=== PATIENT | male | born 1995 | race Two or more races ===

== ENCOUNTER 2023-08-30 20:36 | Emergency (ER) | payer OTHER ==
[~2023-08-30] VITALS: Ht 185.4 cm; Wt 122.0 kg
[2023-08-30 20:36] VITALS: BP 142/80; RESP 20; O2SAT 100
[2023-08-30 21:07] VITALS: PULSE 72
[2023-08-30] MEDS ORDERED: GABAPENTIN 300 MG CAP PO ONE (21:30)
[2023-08-30 21:52] LABS: Basophils # (auto) 0 10 ^3/uL (0-0.2); Basophils % (auto) 0.8 % (0.0-2.0); Eosinophils # (auto) 0.2 10 ^3/uL (0-0.8); Eosinophils % (auto) 2.9 % (0.0-7.0); Hematocrit 40.9 % (41.0-53.0); Hemoglobin 13.5 g/dL (13.5-17.5); Lymphocytes # (auto) 1.7 10 ^3/uL (0.4-5.4); Lymphocytes % (auto) 28.3 % (10.0-50.0); Mean Corpuscular Hemoglobin 29.4 pg (28.0-32.0); Mean Corpuscular Hgb Conc. 32.9 g/dL (32.0-36.0); Mean Corpuscular Volume 89.4 fL (80.0-100.0); Monocytes # (auto) 0.4 10 ^3/uL (0-1.3); Monocytes % (auto) 6.6 % (0.0-12.0); Neutrophils # (auto) 3.7 10 ^3/uL (1.6-8.6); Neutrophils % (auto) 61.4 % (37.0-80.0); Nucleated Red Blood Cells % 0.1 %; Red Blood Cells 4.58 10^6/uL (4.5-5.90); Red Cell Distribution Width 14.1 % (11.8-14.3)
[2023-08-30 22:00] LABS: Chloride 106 mmol/L (98-107); Potassium 4.2 mmol/L (3.5-5.1); Sodium 139 mmol/L (136-145)
[2023-08-30 22:01] LABS: Anion Gap 4 (5-15); Carbon Dioxide 29 mmol/L (20-30)
[2023-08-30 22:06] LABS: BUN/Creatinine Ratio 12.1 (10.0-20.0); Blood Urea Nitrogen 16 mg/dL (9-23); Glucose 86 mg/dL (74-106)
[2023-08-31] MEDS ORDERED: GABA-1250 PO (00:07)
== END 2023-08-31 02:41 | disposition home or self-care (01) ==
LOC: ER 20:36
DX: G62.9 Polyneuropathy, unspecified (principal); R25.1 Tremor, unspecified; F41.9 Anxiety disorder, unspecified; F32.9 Major depressive disorder, single episode, unspecified; Z88.0 Allergy status to penicillin
CPT/HCPCS: 36415; 72040; 72100; 80048; 84484; 85025; 93005

== ENCOUNTER 2025-04-10 22:21 | Emergency (ER) | payer MEDICARE, OTHER ==
[~2025-04-10] VITALS: Ht 182.9 cm; Wt 131.0 kg
[~2025-04-10 22:21] MED LIST: GABA-1250 PO
[2025-04-10 22:25] VITALS: PULSE 67; RESP 17; O2SAT 100
[2025-04-10] MEDS: SODIUM CHLORIDE 0.9% 1,000 ML IV ONE ×2 (22:30→23:00)
--- NOTE | 2025-04-10 22:31 | ED.PDOC ---
Altered Mental Status HPI Comments 30-year-old, obese M is SAROJ from private residence for [employer]. Girlfriend called, endorsing on patient drinking [id number] of alcoholic drink Buzzball in addition to taking a handful of his Trazodone and Lorazepam in a suicide attempt after getting into a verbal altercation with her, earlier, this evening. On scene, patient was GCS 3, pupils were responsive but slow, and vitals were within normal limits. No reported falls or injuries. Pertinent history of schizophrenia. Past medical history: schizophrenia, depression, anxiety Past surgical history: denies Medications: 10 mg Trintellix qd, 20 mg propranolol b.i.d, 1 rexulti brexpiprazole, Trazodone, and Lorazepam On scene vitals: blood pressure of 160/87 pulse 69 respiratory rate 16 SpO2 99%RA blood glucose 71 green, christopher: OD, SI. normal exam. HPI: Poor Historian. REVIEW OF SYSTEMS: CONSTITUTIONAL: Denies acute: fever, diaphoresis, chills, HEAD: Denies acute: headache, photophobia Eyes: Denies acute: Double vision, vision loss, eye pain, eye discharge. EARS: Denies acute: tinnitus, hearing loss, ear discharge, ear pain, THROAT: Denies acute: sore throat, swelling, difficulty swallowing , pain with swallowing, change in voice. NECK: Denies acute: neck pain, neck swelling, stiff neck. HEART: Denies acute : chest pain, palpitations, LUNGS: Denies acute: SOB, wheezing, cough, hemoptysis ABDOMEN: Denies acute: abdominal pain, Nausea, Vomiting, diarrhea, melena , hematemesis, hematochezia SKIN: Denies acute: rash, redness, lesions, itchiness. EXTREMITIES: Denies acute: calf pain, numbness, tingling, weakness, denies pain in extremity. Denies acute: Low back pain. Neuro: Denies acute: focal neurological deficit, motor or sensory focal neurological deficit, tremors, seizure like activity, loss of bowel or bladder function, cauda equina like symptoms. : Denies acute: dysuria, hematuria, flank pain, increase in urinary frequency. PSYCH: Denies acute: hallucination, homicidal ideation. PHYSICAL EXAM: General: ----no----acute distress, awake and alert. Head: normocephalic, atraumatic. No raccoon's eyes, no he sign. Neck: supple, trachea is midline, no swelling. Throat: Normal phonation. Eyes:, no erythema, no purulent discharge, no proptosis, no icterus. Heart: regular rate, regular rhythm, no significant murmur appreciated. Lungs: no apparent respiratory distress, Able to speak in full sentences. No wheezing, no rhonchi, no crackles. No stridors Clear to auscultation bilaterally. Abdomen: non tender to palpation, non distended, soft, no guarding, no rebound, + bowel sounds. Neuro: Arousable but lethargic, follows commands, knows his name and able to answer questions of what medications he took. Skin: no petechia, no purpura, no cyanosis, non-pale, not jaundice. Lower extremities: --no - Pitting edema no deformity, no focal swelling, no calf TTP. Face: no apparent facial droop. PERRLA, EOM-I No nuchal rigidity, Kernig's sign, Brudzinski's sign, no meningeal signs. ED COURSE: DISCLAIMER: This medical document was created using an electronic medical record system with voice recognition software and computerized dictation system. Although this document has been carefully reviewed, there might still be some phonetic and typographical errors. Occasional wrong-word or "sound-alike" substitutions may have occurred due to the inherent limitations of voice recognition software. These areas are purely typographical due to imperfections of the software programs and do not reflect any compromise in the patient's medical care. Please read the chart carefully and recognize, using context, where these substitutions have occurred. Time Seen by MD: 10:20 Reviewed Notes: Allergies Allergies: Coded Allergies: Penicillins (Verified Allergy, Unknown, 08/30/23) Home Meds Active Scripts Gabapentin (Gabapentin) 300 Mg Cap, 1 CAP PO Q6HP PRN, #30 CAP 0 Refills Prov:PAWEL SANTIAGO PAC 08/31/23 Information Source: Patient, Emergency Med Personnel Mode of Arrival: EMS Past Medical History PAST MEDICAL HISTORY: Anxiety, Depression, Schizophrenia Surgical History: Denies all surgeries Family History Family History: Reviewed,noncontributory to illness, No family hx of Cancer, No family hx of DM, No family hx of Heart armida, No family hx of HTN, No family hx ofKidney armida, No family hx of Liver armida, No family hx of Lung armida, No family hx of Stroke Social History Smoker: Non-Smoker Alcohol: Occasionally Drugs: Denies Drug Use Lives In: Home Was a procedure done? Was a procedure done?: No Differential Diagnosis (ALOC) Differential Diagnosis: Other (DDX include CVA, TGA, cerebellar ischemia/infarct, carotid stenosis, Intracranial mass/infection/bleed, encephalopathy, electrolyte abnormality, thyroid disease, hydrocephalus, hypoglycemia, drug toxicity, cardiac arrhythmia, seizure, infection in the elderly, Hyperammonemia., kidney failure., sepsis.) Other Differential Diagnosis Suicide attempt, suicide ideation, drug overdose, schizophrenia, X-Ray, Labs, Meds, VS Vital Signs Date Time Temp Pulse Resp B/P (MAP) Pulse Ox O2 Delivery O2 Flow Rate FiO2 04/11/25 04:00 84 04/11/25 04:00 64 11 100/56 (71) 98 04/11/25 02:00 66 10 91/54 (66) 99 04/11/25 00:00 75 04/10/25 23:15 56 13 110/47 (68) 100 04/10/25 22:30 98.6 67 4 160/87 99 98.6 04/10/25 22:25 67 17 100 Nasal Cannula* 2 28 04/10/25 22:25 62 04/10/25 22:25 98.3 67 17 117/62 (80) 100 98.3 Lab Test 04/10/25 22:35 Range/Units White Blood Count 5.3 4.4-10.8 10^3/uL Red Blood Count 4.41 L 4.5-5.90 10^6/uL Hemoglobin 13.0 L 13.5-17.5 g/dL Hematocrit 39.7 L 41.0-53.0 % Mean Corpuscular Volume 89.9 80.0-100.0 fL Mean Corpuscular Hemoglobin 29.5 28.0-32.0 pg Mean Corpuscular Hemoglobin Concent 32.8 32.0-36.0 g/dL Red Cell Distribution Width 14.2 11.8-14.3 % Platelet Count 208 140-450 10^3/uL Mean Platelet Volume 8.5 6.9-10.8 fL Neutrophils (%) (Auto) 61.3 37.0-80.0 % Lymphocytes (%) (Auto) 28.7 10.0-50.0 % Monocytes (%) (Auto) 7.8 0.0-12.0 % Eosinophils (%) (Auto) 1.3 0.0-7.0 % Basophils (%) (Auto) 0.9 0.0-2.0 % Neutrophils # (Auto) 3.2 1.6-8.6 10 ^3/uL Lymphocytes # (Auto) 1.5 0.4-5.4 10 ^3/uL Monocytes # (Auto) 0.4 0-1.3 10 ^3/uL Eosinophils # (Auto) 0.1 0-0.8 10 ^3/uL Basophils # (Auto) 0 0-0.2 10 ^3/uL Nucleated Red Blood Cells 0.0 % Sodium Level 142 136-145 mmol/L Potassium Level 3.9 3.5-5.1 mmol/L Chloride Level 107 98-107 mmol/L Carbon Dioxide Level 28 20-31 mmol/L Anion Gap 7 5-15 Blood Urea Nitrogen 14 9-23 mg/dL Creatinine 1.54 H 0.700-1.30 mg/dL Glomerular Filtration Rate Calc 61 >90 mL/min BUN/Creatinine Ratio 9.1 L 10.0-20.0 Serum Glucose 100 74-106 mg/dL Lactic Acid Level 1.0 0.4-2.0 mmol/L Calcium Level 9.5 8.7-10.4 mg/dL Total Bilirubin 0.5 0.2-1.0 mg/dL Aspartate Amino Transferase (AST) 27 13-40 U/L Alanine Aminotransferase (ALT) 30 7-40 U/L Alkaline Phosphatase 66 46-116 U/L Total Protein 7.7 5.7-8.2 g/dL Albumin 4.7 3.2-4.8 g/dL Salicylates Level < 3.0 -30 mg/dL Acetaminophen Level < 2.0 L 10.0-20.0 UG/ML Plasma/Serum Blood Alcohol < 3.0 <10 mg/dL Current Medications Medications (Trade) Dose Ordered Sig/Coreen Route Start Time Stop Time Status Last Admin Sodium Chloride 1,000 ml @ 1,000 mls/hr Q1H ONCE IV 04/10/25 22:30 04/10/25 23:29 DC 04/10/25 22:30 Sodium Chloride 1,000 ml @ 1,000 mls/hr Q1H ONCE IV 04/10/25 23:00 04/10/25 23:59 DC 04/10/25 23:00 Sodium Chloride 1,000 ml @ 1,000 mls/hr Q1H ONCE IV 04/11/25 04:45 04/11/25 05:44 DC 04/11/25 04:55 [place] [address] Ph: [phone] DIAGNOSTIC IMAGING Diagnostic Imaging Report : [id number] Signed PATIENT: MADDY OCONNELL ACCT: [id number] UNIT: [id number] : 1995 LOC: ER ROOM / BED: / AGE / SEX: 30 / M ADM STATUS: REG ER SERVICE 23 ORDERING PHYSICIAN: CHRISTINA SOLANO DO PROCEDURE(s): HWOCT - HEAD WITHOUT CONTRAST REASON: ALOC ORDER NUMBER(s): [id number], ACCESSION NUMBER(s): [id number] EXAM: CT HEAD WITHOUT CONTRAST INDICATION: ALOC TECHNIQUE: CT of the head without intravenous contrast. Radiation Dose : 1. Head: CT Dose: CTDI volume is 63.85 mGy. Dose-length product is 1150.97 mGy*cm The dose indicators for CT are the volume Computed Tomography (CT) Dose Index (CTDIvol) and the Dose Length Product (DLP), and are measured in units of mGy and mGy-cm, respectively. These indicators are not patient dose, but values generated from the CT scanner acquisition factors. The report includes radiation exposure data for exposures received during this examination. COMPARISON: None FINDINGS: Brain: No acute hemorrhage, mass effect, or cerebral edema. CSF Spaces: Size and morphology within normal limits. Bones/Soft Tissues: No acute findings. Orbits/Sinuses/Mastoids: Unremarkable as visualized. IMPRESSION: 1. No acute intracranial abnormality. Radiation optimization: All CT scans at this facility use at least one of these dose optimization techniques: automated exposure control mA and/or kV adjustment per patient size (includes targeted exams where dose is matched to clinical indication) or iterative reconstruction. ATED BY: SIMRAN WALKER MD DICTATED DATE/TIME: 04/10/252331 SIGNED BY: SIMRAN WALKER MD SIGNED DATE/TIME: 04/10/252331 CC: Time of 1ST Reevaluation: 10:20 Reevaluation 1ST: Unchanged Patient Education/Counseling: Diagnosis, Treatment Family Education/Counseling: No Family Present Assigned to Dr. Hernandez. The care of this patient was transitioned to my colleague Dr. Bowman. Patient has been observed adequate length of time in the ED. Patient has been medically cleared. Patient is awaiting tele psych evaluation and reassessment and final disposition Comments Poison control was consulted. They recommended observation for 6 hours since the time of onset of ingestion. Patient was evaluated immediately upon arrival. Patient was given fluids and Narcan. Patient was able to follow command and communicate the medications he took. Patient no acute distress. Vital signs remained stable. This was suspected suicide attempt with overdosing. Patient has history of mental illness. Tele psych consultation is still pending. SEPSIS Sepsis Screen Physician Orders Hot Walker (04/10/25 ) Drug Screen (04/10/25 22:24) Urinalysis (04/10/25 22:24) Electrocardigram (04/10/25 22:24) Head Without Contrast (04/10/25 22:24) * Talent Acquisition Associate Consult (04/10/25 ) *Tele Psych Consult (04/10/25 22:24) Vital Signs Date Time Temp Pulse Resp B/P (MAP) Pulse Ox O2 Delivery O2 Flow Rate FiO2 04/11/25 04:00 84 04/11/25 04:00 64 11 100/56 (71) 98 04/11/25 02:00 66 10 91/54 (66) 99 04/11/25 00:00 75 04/10/25 23:15 56 13 110/47 (68) 100 04/10/25 22:30 98.6 67 4 160/87 99 98.6 04/10/25 22:25 67 17 100 Nasal Cannula* 2 28 04/10/25 22:25 62 04/10/25 22:25 98.3 67 17 117/62 (80) 100 98.3 Laboratory Tests Test 04/10/25 22:35 Lactic Acid Level 1.0 mmol/L (0.4-2.0) White Blood Count 5.3 10^3/uL (4.4-10.8) Medications Medications Dose Ordered Sig/Coreen Route Start Time Stop Time Status Last Admin Dose Admin Sodium Chloride 1,000 ml @ 1,000 mls/hr Q1H ONCE IV 04/11/25 04:45 04/11/25 05:44 DC 04/11/25 04:55 Sodium Chloride 1,000 ml @ 1,000 mls/hr Q1H ONCE IV 04/10/25 22:30 04/10/25 23:29 DC 04/10/25 22:30 Sodium Chloride 1,000 ml @ 1,000 mls/hr Q1H ONCE IV 04/10/25 23:00 04/10/25 23:59 DC 04/10/25 23:00 Departure 1 Departure Time of Disposition: 02:43 Impression: Primary Impression: Intentional overdose of trazodone Additional Impressions: Suicide attempt by benzodiazepine overdose Suicide attempt Altered level of consciousness Disposition: 30 STILL A PATIENT Condition: Guarded Discharged With: Self Critical Care Note Critical Care Time?: Yes (45 min-critical care time only) Critical care comment: Due to a high probability of clinically significant, life threatening deterioration, the patient required my highest level of preparedness to intervene emergently and I personally spent this critical care time directly and personally managing the patient. This critical care time included obtaining a history; examining the patient; pulse oximetry; ordering and review of studies; arranging urgent treatment with development of a management plan; evaluation of patient's response to treatment; frequent reassessment; and, discussions with other providers. This critical care time was performed to assess and manage the high probability of imminent, life-threatening deterioration that could result in multi-organ failure. It was exclusive of separately billable procedures and treating other patients and teaching time. Please see my other sections and the rest of the note for further information on patient assessment and treatment. Heart Score Heart Score: Heart Score Response (Comments) Value History N/A 0 EKG N/A 0 Age N/A 0 Risk Factors N/A 0 Troponin N/A 0 Total 0 I personally scribed for CHRISTINA SOLANO DO ([email or web address]) on 04/10/25 at 22:31. Electronically submitted by Elvin Lindsay ([email or web address]). I personally scribed for CHRISTINA SOLANO DO ([email or web address]) on 04/10/25 at 23:27. Electronically submitted by Elvin Lindsay ([email or web address]). I personally scribed for CHRISTINA SOLANO DO ([email or web address]) on 04/11/25 at 00:18. Electronically submitted by Elvin Lindsay ([email or web address]). CHRISTINA SOLANO DO Apr 10, 2025 22:31
[2025-04-10 22:49] LABS: Hematocrit 39.7 % (41.0-53.0); Hemoglobin 13.0 g/dL (13.5-17.5); Mean Corpuscular Hemoglobin 29.5 pg (28.0-32.0); Mean Corpuscular Volume 89.9 fL (80.0-100.0); Nucleated Red Blood Cells % 0.0 %
[2025-04-10 23:16] LABS: Alanine Aminotransferase 30 U/L (7-40); Albumin 4.7 g/dL (3.2-4.8); Alkaline Phosphatase 66 U/L (46-116); Anion Gap 7 (5-15); BUN/Creatinine Ratio 9.1 (10.0-20.0); Blood Urea Nitrogen 14 mg/dL (9-23); Calcium 9.5 mg/dL (8.7-10.4); Carbon Dioxide 28 mmol/L (20-31); Chloride 107 mmol/L (98-107); Glucose 100 mg/dL (74-106); Potassium 3.9 mmol/L (3.5-5.1); Sodium 142 mmol/L (136-145); Total Protein 7.7 g/dL (5.7-8.2)
[2025-04-10 23:17] LABS: Bilirubin, Total 0.5 mg/dL (0.2-1.0)
[2025-04-10 23:19] LABS: Acetaminophen < 2.0 UG/ML (10.0-20.0); Salicylate < 3.0 mg/dL (-30)
--- NOTE | 2025-04-10 23:35 | DVH ---
EXAM: CT HEAD WITHOUT CONTRAST INDICATION: ALOC TECHNIQUE: CT of the head without intravenous contrast. Radiation Dose : 1. Head: CT Dose: CTDI volume is 63.85 mGy. Dose-length product is 1150.97 mGy*cm The dose indicators for CT are the volume Computed Tomography (CT) Dose Index (CTDIvol) and the Dose Length Product (DLP), and are measured in units of mGy and mGy-cm, respectively. These indicators are not patient dose, but values generated from the CT scanner acquisition factors. The report includes radiation exposure data for exposures received during this examination. COMPARISON: None FINDINGS: Brain: No acute hemorrhage, mass effect, or cerebral edema. CSF Spaces: Size and morphology within normal limits. Bones/Soft Tissues: No acute findings. Orbits/Sinuses/Mastoids: Unremarkable as visualized. IMPRESSION: 1. No acute intracranial abnormality. Radiation optimization: All CT scans at this facility use at least one of these dose optimization techniques: automated exposure control mA and/or kV adjustment per patient size (includes targeted exams where dose is matched to clinical indication) or iterative reconstruction.
[2025-04-11] MEDS: SODIUM CHLORIDE 0.9% 1,000 ML IV ONE (04:55)
--- NOTE | 2025-04-11 06:32 | DVHINCON2 ---
Date of Service if different f: Apr 11, 2025 Time of Service: 06:02 Consultation ([facility]) Consulting Physician: TERESA GARG MD Labs Laboratory Tests Test 04/10/25 22:35 White Blood Count 5.3 10^3/uL (4.4-10.8) Red Blood Count 4.41 10^6/uL (4.5-5.90) Hemoglobin 13.0 g/dL (13.5-17.5) Hematocrit 39.7 % (41.0-53.0) Mean Corpuscular Volume 89.9 fL (80.0-100.0) Mean Corpuscular Hemoglobin 29.5 pg (28.0-32.0) Mean Corpuscular Hemoglobin Concent 32.8 g/dL (32.0-36.0) Red Cell Distribution Width 14.2 % (11.8-14.3) Platelet Count 208 10^3/uL (140-450) Mean Platelet Volume 8.5 fL (6.9-10.8) Neutrophils (%) (Auto) 61.3 % (37.0-80.0) Lymphocytes (%) (Auto) 28.7 % (10.0-50.0) Monocytes (%) (Auto) 7.8 % (0.0-12.0) Eosinophils (%) (Auto) 1.3 % (0.0-7.0) Basophils (%) (Auto) 0.9 % (0.0-2.0) Neutrophils # (Auto) 3.2 10 ^3/uL (1.6-8.6) Lymphocytes # (Auto) 1.5 10 ^3/uL (0.4-5.4) Monocytes # (Auto) 0.4 10 ^3/uL (0-1.3) Eosinophils # (Auto) 0.1 10 ^3/uL (0-0.8) Basophils # (Auto) 0 10 ^3/uL (0-0.2) Nucleated Red Blood Cells 0.0 % Sodium Level 142 mmol/L (136-145) Potassium Level 3.9 mmol/L (3.5-5.1) Chloride Level 107 mmol/L (98-107) Carbon Dioxide Level 28 mmol/L (20-31) Anion Gap 7 (5-15) Blood Urea Nitrogen 14 mg/dL (9-23) Creatinine 1.54 mg/dL (0.700-1.30) Glomerular Filtration Rate Calc 61 mL/min (>90) BUN/Creatinine Ratio 9.1 (10.0-20.0) Serum Glucose 100 mg/dL (74-106) Lactic Acid Level 1.0 mmol/L (0.4-2.0) Calcium Level 9.5 mg/dL (8.7-10.4) Total Bilirubin 0.5 mg/dL (0.2-1.0) Aspartate Amino Transf (AST/SGOT) 27 U/L (13-40) Alanine Aminotransferase (ALT/SGPT) 30 U/L (7-40) Alkaline Phosphatase 66 U/L (46-116) Total Protein 7.7 g/dL (5.7-8.2) Albumin 4.7 g/dL (3.2-4.8) Salicylates Level < 3.0 mg/dL (-30) Acetaminophen Level < 2.0 UG/ML (10.0-20.0) Plasma/Serum Blood Alcohol < 3.0 mg/dL (<10) Appearance: Stated age Psychomotor activity: Lethargic Behavioral: Cooperative Eye contact: Limited Speech: Soft, Dysarthric Affect: Blunted Mood: Neutral Thought processes: Linear/Goal-directed Thought content: WNL Suicidal ideations: Present Homicidal ideations: Absent Orientation: Person, Place, Time Memory intact: Recent Intellect: Average Abstractability: WNL Concentration: Limited Attention: Limited Judgement: Poor Insight: Poor Vitals Vital Signs Date Time Temp Pulse Resp B/P (MAP) Pulse Ox O2 Delivery O2 Flow Rate FiO2 04/11/25 04:00 84 04/11/25 04:00 11 100/56 (71) 98 04/10/25 22:30 98.6 98.6 04/10/25 22:25 Nasal Cannula* 2 28 Treatment plan discussed: With staff Medication adjusted: No Labs ordered: No Psychotherapy provided: No Type: Voluntary History of Present Illness Reason for Consult : psychiatric evaluation Per ED Physician: 30-year-old, obese M is BIBA from private residence for ALOC. Girlfriend called, endorsing on patient drinking [id number] of alcoholic drink Buzzball in addition to taking a handful of his Trazodone and Lorazepam in a suicide attempt after getting into a verbal altercation with her, earlier, this evening. On scene, patient was GCS 3, pupils were responsive but slow, and vitals were within normal limits. No reported falls or injuries. Pertinent history of schizophrenia. Psychiatrist HPI: The patient was seen and evaluated at [facility] ED via telepsychiatry platform. 30 yr old male reported he took a bunch of pills in an attempt to kill himself. He reported he had one previous suicide attempt when he was 15 or 16. He said last night, "I just felt like it was time for me to go." He said he currently has no thoughts of harming himself. He is very sedated and is slow to answer questions. He was unable to recall exactly what happened but reportedly drank a buzzball in addition to taking an unknown quantity of trazodone and lorazepam in a suicide attempt after an argument. Past Psychiatric History: One past hospitalization as teenager. One past suicide attempts. Diagnosed with schizoaffective disorder, bipolar type. Past Medical History: Diabetes Current Medications: Trintillex 10mg qam Propranolol 20mg BID Rexulti 1mg qam Trazodone 50mg qhs Ativan NKDA Substance use: Drinks alcohol occasionally. denied use of other substances Social History : Lives in [place] with . Attends [employer] school. Diagnosis: SCHIZOAFFECTIVE DISORDER, BIPOLAR TYPE Formulation: This 30 yr old male appears to suffer from schizoaffective disorder and had an overdose suicide attempt. He is currently very sedated and unable to fully participate in the evaluation. Recommend he be reevaluated when he is more alert. Recommend continued observation in ED until he is able to complete repeat psychiatric evaluation. Plan: 1. Recommend psychiatry reassess him in a few hours when he is more alert and able to participate in the interview. 2. Legal-voluntary. 3. Medication: No medications at this time. Consider restarting rexulti and Trintillex when he is more alert. 4. case discussed with ED RNBoone. Assessment/Diagnosis/Plan Reviewed: Labs, Medications, Previous Orders TERESA GARG MD Apr 11, 2025 06:02
[2025-04-11 08:00] VITALS: PULSE 67; RESP 13; O2SAT 95
--- NOTE | 2025-04-11 12:49 | DVHINCON2 ---
Date of Service if different f: Apr 11, 2025 Consultation ([facility]) Consulting Physician: TERESA GARG MD Labs Laboratory Tests Test 04/10/25 22:35 White Blood Count 5.3 10^3/uL (4.4-10.8) Red Blood Count 4.41 10^6/uL (4.5-5.90) Hemoglobin 13.0 g/dL (13.5-17.5) Hematocrit 39.7 % (41.0-53.0) Mean Corpuscular Volume 89.9 fL (80.0-100.0) Mean Corpuscular Hemoglobin 29.5 pg (28.0-32.0) Mean Corpuscular Hemoglobin Concent 32.8 g/dL (32.0-36.0) Red Cell Distribution Width 14.2 % (11.8-14.3) Platelet Count 208 10^3/uL (140-450) Mean Platelet Volume 8.5 fL (6.9-10.8) Neutrophils (%) (Auto) 61.3 % (37.0-80.0) Lymphocytes (%) (Auto) 28.7 % (10.0-50.0) Monocytes (%) (Auto) 7.8 % (0.0-12.0) Eosinophils (%) (Auto) 1.3 % (0.0-7.0) Basophils (%) (Auto) 0.9 % (0.0-2.0) Neutrophils # (Auto) 3.2 10 ^3/uL (1.6-8.6) Lymphocytes # (Auto) 1.5 10 ^3/uL (0.4-5.4) Monocytes # (Auto) 0.4 10 ^3/uL (0-1.3) Eosinophils # (Auto) 0.1 10 ^3/uL (0-0.8) Basophils # (Auto) 0 10 ^3/uL (0-0.2) Nucleated Red Blood Cells 0.0 % Sodium Level 142 mmol/L (136-145) Potassium Level 3.9 mmol/L (3.5-5.1) Chloride Level 107 mmol/L (98-107) Carbon Dioxide Level 28 mmol/L (20-31) Anion Gap 7 (5-15) Blood Urea Nitrogen 14 mg/dL (9-23) Creatinine 1.54 mg/dL (0.700-1.30) Glomerular Filtration Rate Calc 61 mL/min (>90) BUN/Creatinine Ratio 9.1 (10.0-20.0) Serum Glucose 100 mg/dL (74-106) Lactic Acid Level 1.0 mmol/L (0.4-2.0) Calcium Level 9.5 mg/dL (8.7-10.4) Total Bilirubin 0.5 mg/dL (0.2-1.0) Aspartate Amino Transf (AST/SGOT) 27 U/L (13-40) Alanine Aminotransferase (ALT/SGPT) 30 U/L (7-40) Alkaline Phosphatase 66 U/L (46-116) Total Protein 7.7 g/dL (5.7-8.2) Albumin 4.7 g/dL (3.2-4.8) Salicylates Level < 3.0 mg/dL (-30) Acetaminophen Level < 2.0 UG/ML (10.0-20.0) Plasma/Serum Blood Alcohol < 3.0 mg/dL (<10) Appetite: Fair Appearance: Stated age, Groomed Psychomotor activity: Lethargic Behavioral: Cooperative Eye contact: Limited Speech: Soft, Dysarthric Affect: Blunted Mood: Neutral Thought processes: Linear/Goal-directed Thought content: WNL Suicidal ideations: Present Homicidal ideations: Absent Orientation: Person, Place, Time Memory intact: Recent Intellect: Average Abstractability: WNL Concentration: Limited Attention: Limited Judgement: Poor Insight: Poor Vitals Vital Signs Date Time Temp Pulse Resp B/P (MAP) Pulse Ox O2 Delivery O2 Flow Rate FiO2 04/11/25 10:18 67 11 122/71 (88) 99 04/11/25 08:00 97.9 97.9 04/10/25 22:25 Nasal Cannula* 2 28 Treatment plan discussed: With staff Medication adjusted: No Labs ordered: No Psychotherapy provided: No Type: Voluntary History of Present Illness Reason for Consult : Follow up HPI : This is a 30-year-old male with history of schizoaffective disorder, he presents here after suicide attempt with overdose. Patient is evaluated via telepsychiatry platform. He is lying in bed and drowsy. His eyes are mostly open but able to respond to questions. He reports having an argument with about "multiple things." and this led to him taking a handful of trazodone 50mg and clonazepam (unknown dose) and then used alcohol to wash it down. He is unsure amount of alcohol. The alcohol was consumed after the pills. He reports feeling depressed and hopeless prior to the argument. He reports just wanting to go to sleep and not wake up. When asked if disappointed that he woke up, replies, "I'm in the middle." He does not feel entirely happy to be alive, he continues to feel depressed. When asked if having suicidal ideation now, he replies, "not now." He denies homicidal ideation. He reports history of auditory hallucinations but denies currently. He denies visual hallucinations or paranoid thoughts. He reports sleep and appetite have been intact Past Psychiatric History : He had overdose attempt at age 16. He had most recent psych hospitalization in 2018 for suicidal ideation. He does have outpatient mental health services, follow up with therapist weekly and psychiatrist every 3 months. He reports compliance to his psychotropic medications of Trintellix 10mg and Rexulti 1mg. The Trazodone is an old prescription. Past Medical History : He reports history of prediabetes Social History : He lives with , no children. Unknown employment status. He reports maternal grandmother may have undiagnosed mental health problems. He reports alcohol use is only socially, he denies other substance use. No urine drug screen available Diagnosis: schizoaffective disorder, bipolar type. Plan: This is a 30-year-old male with hx of schizoaffective disorder, not well- controlled with suicide attempt. He continues to report somewhat disappointed to be alive and depressed mood. High likelihood of reattempt. Recommend 5150 hold for DTS and transfer to inpatient psychiatric hospital for stabilization and treatment. Assessment/Diagnosis/Plan Reviewed: Labs, Medications, Previous Orders TIFFANY LAKE DNP Apr 11, 2025 12:49
[2025-04-11 14:02] LABS: Urine Protein, UAD Negative (Negative)
[2025-04-11 14:26] LABS: Amphetamine Screen, Urine Neg (NEGATIVE); Barbiturate Scree,Urine Neg (NEGATIVE); Benzodiazephine Screen, Urine Neg (NEGATIVE); Cannabinoid Screen, Urine Neg (NEGATIVE); Cocaine Screen, Urine Neg (NEGATIVE); Opiate Scree,Urine Neg (NEGATIVE); Phencyclidine Screen, Urine Neg (NEGATIVE)
[2025-04-12 07:10] VITALS: BP 109/61; PULSE 98; RESP 18; TEMP 97.7; O2SAT 98
== END 2025-04-12 08:16 | disposition short-term general hospital (02) ==
LOC: ER 22:21 → EDBD 22:21 → ER 04-12 08:16
DX: T43.212A Poisoning by selective serotonin and norepinephrine reuptake inhibitors, intentional self-harm, initial encounter (principal); T14.91XA Suicide attempt, initial encounter; F10.90 Alcohol use, unspecified, uncomplicated; F32.A Depression, unspecified; F41.9 Anxiety disorder, unspecified; F20.9 Schizophrenia, unspecified; E11.9 Type 2 diabetes mellitus without complications; E66.9 Obesity, unspecified; Z79.899 Other long term (current) drug therapy; Z88.0 Allergy status to penicillin; Z68.39 Body mass index [BMI] 39.0-39.9, adult; Y92.89 Other specified places as the place of occurrence of the external cause
CPT/HCPCS: 36415; 70450; 80053; 80307; 80320; 80329; 81001; 83605; 85025; 96360; 96361; 99291; J7030